=== PATIENT | female | born 2000 | race African-American/Black ===

== ENCOUNTER 2021-01-22 13:37 | Emergency (ER) | payer SELFPAY ==
[~2021-01-22] VITALS: Ht 160 cm; Wt 122.7 kg
[2021-01-22 13:37] VITALS: BP 147/70
--- NOTE | 2021-01-22 15:14 | PHYS DOC ---
General Adult EDM: Chief Complaint: KNEE INJURY HPI: HPI: 20-year-old female presents with left knee pain. Patient was walking in a store yesterday when she turned to answer question and rotate down her left knee. She heard a pop and she will fell into the doorway. She did not fall to the ground. Patient is able to bear weight but it is quite painful. She rates it 8 out of 10 with weightbearing. She has had intermittent trouble with this knee in the past. No specific injury diagnosed. She has no other injuries or complaints at this time. Review of Systems: Review of Systems: Constitutional: Denies fever or chills Eyes: Denies change in visual acuity HENT: Denies nasal congestion or sore throat Respiratory: Denies cough or shortness of breath Cardiovascular: Denies chest pain or edema GI: Denies abdominal pain, nausea, vomiting, bloody stools or diarrhea : Denies dysuria Musculoskeletal: Left knee pain Integument: Denies rash Neurologic: Denies headache, focal weakness or sensory changes Endocrine: Denies polyuria or polydipsia Lymphatic: Denies swollen glands Psychiatric: Denies depression or anxiety Physical Exam: PE: Constitutional: Well developed, well nourished, morbidly obese, no acute distress, non-toxic appearance. [] HENT: Normocephalic, atraumatic, bilateral external ears normal, oropharynx moist, no oral exudates, nose normal. [] Eyes: PERRLA, EOMI, conjunctiva normal, no discharge. [] Neck: Normal range of motion, no tenderness, supple, no stridor. [] Cardiovascular:Heart rate regular rhythm, no murmur [] Lungs & Thorax: Bilateral breath sounds clear to auscultation [] Abdomen: Bowel sounds normal, soft, no tenderness, no masses, no pulsatile masses. [] Skin: Warm, dry, no erythema, no rash. [] Back: No tenderness, no CVA tenderness. [] Extremities: Left knee ligaments with solid and feel. Medial pain with varus/valgus stress. Tenderness along the medial joint line. [] Neurologic: Alert and oriented X 3, normal motor function, normal sensory function, no focal deficits noted. [] Psychologic: Affect normal, judgement normal, mood normal. [] EKG: EKG: [] Radiology/Procedures: Radiology/Procedures: [] Heart Score: C/O Chest Pain: N/A Risk Factors: Risk Factors: DM, Current or recent (<one month) smoker, HTN, HLP, family history of CAD, obesity. Risk Scores: Score 0 - 3: 2.5% MACE over next 6 weeks - Discharge Home Score 4 - 6: 20.3% MACE over next 6 weeks - Admit for Clinical Observation Score 7 - 10: 72.7% MACE over next 6 weeks - Early Invasive Strategies Course & Med Decision Making: Course & Med Decision Making Pertinent Labs and Imaging studies reviewed. (See chart for details) The patient's x-ray is negative for fracture. I suspect she has a medial collateral ligament strain and possibly a medial meniscus tear. I told her to see how things go for the next several days and if it is not better in 1 week that she should seek orthopedic follow-up. I will provide crutches for comfort. She is stable for discharge at this time. [] Cameron Disclaimer: Cameron Disclaimer: This electronic medical record was generated, in whole or in part, using a voice recognition dictation system. Departure Departure: Impression: Primary Impression: Medial collateral ligament sprain of knee Qualified Codes: S83.412A - Sprain of medial collateral ligament of left knee, initial encounter Disposition: HOME / SELF CARE / HOMELESS Condition: STABLE Referrals: PCP,NO (PCP) Patient Instructions: Medial Collateral Knee Ligament Sprain with [facility] SHONDA HAGAN DO January 22, 2021 15:14
--- NOTE | 2021-01-22 15:17 | RAD ---
4 view study of the left knee Clinical indications: Left knee pain FINDINGS: No acute fracture or dislocation or lytic process is seen. No significant arthritic change is seen. No significant left knee joint effusion is seen. The patella is normally aligned. IMPRESSION: No significant osseous abnormality. Electronically signed by: Scott Rivera MD (01/22/2021 3:15 PM) [id number]
== END 2021-01-22 16:16 | disposition home or self-care (01) ==
LOC: ER 13:37
DX: S83.412A Sprain of medial collateral ligament of left knee, initial encounter (principal); W18.39XA Other fall on same level, initial encounter; Y93.01 Activity, walking, marching and hiking; Y92.89 Other specified places as the place of occurrence of the external cause; Y99.8 Other external cause status
CPT/HCPCS: 73564; 99283-25

== ENCOUNTER → 2021-12-14 | Emergency (ER) | payer MEDICAID ==
[~2021-12-14] VITALS: Ht 157.5 cm; Wt 114.4 kg
[~2021-12-14] MED LIST: IV NORMAL SALINE 1,000ML 1,000 ML IV ONE; KETOROLAC 30 MG/ML VIAL. IM ONE; KETOROLAC 30 MG/ML VIAL. IVP ONE; ONDA4TAB12 PO; ONDANSETRON PF 4 MG/2 ML VIAL. IVP ONE
[2021-12-14 17:02] VITALS: BP 146/87
--- NOTE | 2021-12-14 17:18 | PHYS DOC ---
Past History Past Medical History: Hypertension (MARIELENA HARRIS APRN) Past Surgical History: Tonsillectomy (MARIELENA HARRIS APRN) Alcohol Use: None (MARIELENA HARRIS APRN) General Adult EDM: Chief Complaint: CHEST PAIN HPI: HPI: Patient is a 21-year-old female who presents to the emergency department for left-sided chest pain that started 3 days ago. She describes it as a pressure. She rates it 3 out of 10. No treatment prior to arrival. No radiation of pain. Pain is worse with movement and palpation. She reports that she had 1 episode of vomiting this morning and has had some loose stools. She reports that she has had chest pain like this before but was never evaluated for it. Patient denies blood in her stools or vomit, dysuria, diarrhea, fevers, cough, shortness of breath, sick exposures. Patient does have a history of anxiety and hypertension. She reports that she is experiencing more anxiety than normal. (MARIELENA HARRIS APRN) Review of Systems: Review of Systems: Constitutional: See HPI Respiratory: See HPI Cardiovascular: See HPI GI: See HPI : See HPI Psychiatric: See HPI (MARIELENA HARRIS APRN) Allergies: Allergies: Allergies Coded Allergies Type Severity Reaction Last Updated Verified No Known Drug Allergies 12/14/21 No (MARIELENA HARRIS APRN) Physical Exam: PE: Constitutional: Well developed, well nourished, no acute distress, non-toxic appearance. [] HENT: Normocephalic, atraumatic, bilateral external ears normal, oropharynx moist, no oral exudates, nose normal. [] Eyes: PERRL, EOMI, conjunctiva normal, no discharge. [] Neck: Normal range of motion, no tenderness, supple, no stridor, left-sided chest wall tenderness with palpation. [] Cardiovascular:Heart rate regular rhythm, no murmur [] Lungs & Thorax: Bilateral breath sounds clear to auscultation [] Abdomen: Bowel sounds normal, soft, no tenderness, obese, no masses, no pulsatile masses. [] Skin: Warm, dry, no erythema, no rash. [] Back: No tenderness, normal range of motion Extremities: No tenderness, no cyanosis, no clubbing, ROM intact, no edema. [] Neurologic: Alert and oriented X 3, normal motor function, normal sensory function, no focal deficits noted. [] Psychologic: Affect normal, judgement normal, mood normal. [] (MARIELENA HARRIS APRN) Current Patient Data: Labs: Laboratory Tests Test 12/14/21 17:07 12/14/21 17:30 12/14/21 17:45 12/14/21 18:25 Bedside Urine HCG, Qualitative hcg negative Urine Collection Type Clean catch Urine Color Yellow Urine Clarity Clear Urine pH 6.5 Urine Specific Cory >=1.030 Urine Protein Neg Urine Glucose (UA) Neg mg/dL Urine Ketones (Stick) Neg mg/dL Urine Blood Neg Urine Nitrite Neg Urine Bilirubin Neg Urine Urobilinogen Dipstick 1.0 mg/dL Urine Leukocyte Esterase Neg Urine RBC 0 /HPF Urine WBC 0 /HPF Urine Squamous Epithelial Cells Mod /LPF Urine Bacteria 0 /HPF White Blood Count 12.6 x10^3/uL Red Blood Count 4.80 x10^6/uL Hemoglobin 12.8 g/dL Hematocrit 37.6 % Mean Corpuscular Volume 78 fL Mean Corpuscular Hemoglobin 27 pg Mean Corpuscular Hemoglobin Concent 34 g/dL Red Cell Distribution Width 14.9 % Platelet Count 331 x10^3/uL Neutrophils (%) (Auto) 81 % Lymphocytes (%) (Auto) 13 % Monocytes (%) (Auto) 6 % Eosinophils (%) (Auto) 1 % Basophils (%) (Auto) 1 % Neutrophils # (Auto) 10.1 x10^3uL Lymphocytes # (Auto) 1.6 x10^3/uL Monocytes # (Auto) 0.7 x10^3/uL Eosinophils # (Auto) 0.1 x10^3/uL Basophils # (Auto) 0.1 x10^3/uL Troponin I High Sensitivity 5 ng/L Sodium Level 139 mmol/L Potassium Level 3.9 mmol/L Chloride Level 102 mmol/L Carbon Dioxide Level 31 mmol/L Anion Gap 6 Blood Urea Nitrogen 10 mg/dL Creatinine 0.7 mg/dL Estimated GFR (Cockcroft-Gault) 129.1 BUN/Creatinine Ratio 14 Glucose Level 101 mg/dL Calcium Level 8.7 mg/dL Total Bilirubin 1.9 mg/dL Aspartate Amino Transf (AST/SGOT) 20 U/L Alanine Aminotransferase (ALT/SGPT) 31 U/L Alkaline Phosphatase 63 U/L Total Protein 6.7 g/dL Albumin 3.3 g/dL Albumin/Globulin Ratio 1.0 Current Medications Medications (Trade) Dose Ordered Sig/Laci Route PRN Reason Start Time Stop Time Status Last Admin Dose Admin Sodium Chloride 1,000 ml @ 1,000 mls/hr 1X ONCE IV 12/14/21 17:15 12/14/21 18:14 DC 12/14/21 17:15 Ondansetron HCl (Zofran) 4 mg 1X ONCE IVP 12/14/21 17:15 12/14/21 17:16 DC 12/14/21 17:15 Ketorolac Tromethamine (Toradol 30mg Vial) 30 mg 1X ONCE IVP 12/14/21 19:15 12/14/21 19:24 DC (MARIELENA HARRIS APRN) EKG: EKG: EKG performed by ER staff at 1729 shows sinus rhythm with a rate of 61, QTc 324, no STEMI read by Dr. Aguilar at 1729 [] (MARIELENA HARRIS APRN) Radiology/Procedures: Radiology/Procedures: []PROCEDURE: PORTABLE CHEST 1V Exam Date: 12/14/2021 5:18 PM XR CHEST 1V Indication: Reason: chest pain / Spl. Instructions: / History: . FINDINGS/ IMPRESSION: The cardiac silhouette and pulmonary vasculature are within normal limits. There is no focal consolidation, pleural effusion or pneumothorax. The visualized osseous structures are intact. Electronically signed by: Saul Glover MD (12/14/2021 5:31 PM) [facility] DICTATED AND SIGNED BY: SAUL GLOVER MD DATE: 12/14/21 422 CC: MARIELENA HARRIS APRN; PCP,NO ~ (MARIELENA HARRIS APRN) Heart Score: C/O Chest Pain: Yes HEART Score for Chest Pain: HEART Score for Chest Pain Response (Comments) Value History Slighlty/Non-Suspicious 0 ECG Nonspecific Repolarizatio 1 Age < 45 0 Risk Factors 1 or 2 Risk Factors 1 Troponin < Normal Limit 0 Total 2 Risk Factors: Risk Factors: DM, Current or recent (<one month) smoker, HTN, HLP, family history of CAD, obesity. Risk Scores: Score 0 - 3: 2.5% MACE over next 6 weeks - Discharge Home Score 4 - 6: 20.3% MACE over next 6 weeks - Admit for Clinical Observation Score 7 - 10: 72.7% MACE over next 6 weeks - Early Invasive Strategies (MARIELENA HARRIS APRN) Course & Med Decision Making: Course & Med Decision Making Pertinent Labs and Imaging studies reviewed. (See chart for details) [] Patient presents to the emergency department for left-sided chest pain that started 3 days ago that is worse with movement and palpation. Patient is also reporting one episode of vomiting today. Work-up in the emergency department consisted of blood work including troponin, EKG and chest x-ray. She was treated with IV fluids and nausea and pain medication. Patient's heart score is 2. Patient does have mild leukocytosis with a white blood cell count of 12.6, this is possibly due to emesis or viral illness. Patient was noted to have a mildly elevated bilirubin which could be related to a viral illness. She will be tested for covid and influenza. Remainder patient's lab work was unremarkable, negative troponin, chest x-ray did not show any pneumonia, urinalysis not show any urinary tract infection. Patient has no vomited while in the ER. Her VSS. She will be discharged home with nausea medication, she is advised to eat a bland diet, educated on brat diet, advised to avoid fatty, greasy or spicey foods. I discussed with patient all findings and diagnostic testing as well as the need to follow-up with PCP for further evaluation and treatment or return to the ER if any new or worsening symptoms. Strict return precautions were also discussed at length. Patient voiced understanding and agreement with the plan. Patient is hemodynamically stable at the time of disposition. (MARIELENA HARRIS APRN) Dragon Disclaimer: Dragon Disclaimer: This electronic medical record was generated, in whole or in part, using a voice recognition dictation system. (MARIELENA HARRIS APRN) Attending Co-Sign The patient was seen and interviewed as well as examined at the bedside. The chart was reviewed. The case was discussed. Agree with the plan of care. (SHONDA HAGAN DO) Departure Departure: Impression: Primary Impression: Chest wall pain Additional Impression: Nausea & vomiting Qualified Codes: R11.2 - Nausea with vomiting, unspecified Disposition: HOME / SELF CARE / HOMELESS Condition: GOOD Referrals: PCP,NO (PCP) Patient Instructions: Chest Wall Pain, Nausea and Vomiting Additional Instructions: You were seen in the emergency department today for chest pain with nausea and vomiting. At this time, does not appear that you are experiencing acute coronary syndrome. It appears he may be experiencing a viral illness. For your pain you can take Tylenol and ibuprofen. You are being discharged home with nausea medication. Please take this as needed. Increase your fluids. I would advise you to stick to a bland diet over the next day or 2. We recommend a brat diet which is bananas, rice, applesauce and toast. Avoid eating any spicy, greasy or fatty foods. Discontinue marijuana use as this is a common cause of nausea and vomiting. Follow-up with your primary care provider tomorrow regarding your ER visit. Return to the emergency department if you develop chest pain, shortness of breath, high fevers refractory to treatment, intractable nausea or vomiting. Scripts Ondansetron (ONDANSETRON ODT) 4 Mg Tab.rapdis 1 TAB PO PRN Q6-8HRS for nausea for 7 Days, #28 TAB 0 Refills Prov: MARIELENA HARRIS APRN 12/14/21 MARIELENA HARRIS APRN Dec 14, 2021 17:18 SHONDA HAGAN DO Dec 16, 2021 05:51
--- NOTE | 2021-12-14 17:34 | RAD ---
Exam Date: 12/14/2021 5:18 PM XR CHEST 1V Indication: Reason: chest pain / Spl. Instructions: / History: . FINDINGS/ IMPRESSION: The cardiac silhouette and pulmonary vasculature are within normal limits. There is no focal consolidation, pleural effusion or pneumothorax. The visualized osseous structures are intact. Electronically signed by: John Glover MD (12/14/2021 5:31 PM) [facility]
[2021-12-14 18:05] LABS: BASO # 0.1 x10^3/uL (0.0-0.2); BASO % 1 % (0-3); EOS # 0.1 x10^3/uL (0.0-0.7); EOS % 1 % (0-3); HEMATOCRIT 37.6 % (36.0-47.0); HEMOGLOBIN 12.8 g/dL (12.0-15.5); LYMPH # 1.6 x10^3/uL (1.0-4.8); LYMPH % 13 % (24-48); MEAN CORPUSCULAR HEMOGLOBIN 27 pg (25-35); MEAN CORPUSCULAR HGB CONC 34 g/dL (31-37); MEAN CORPUSCULAR VOLUME 78 fL (79-100); MONO # 0.7 x10^3/uL (0.0-1.1); MONO % 6 % (0-9); NEUT # 10.1 x10^3uL (1.8-7.7); NEUT % 81 % (31-73); PLATELET COUNT 331 x10^3/uL (140-400); RED CELL DISTRIBUTION WIDTH 14.9 % (11.5-14.5); WHITE BLOOD COUNT 12.6 x10^3/uL (4.0-11.0)
[2021-12-14 18:37] LABS: BACTERIA,URINE 0 /HPF (0-FEW); CLARITY,URINE CLEAR; COLOR,URINE YELLOW; GLUCOSE,URINE NEG (NEG); NITRITE,URINE NEG (NEG); RBC,URINE 0 /HPF (0-2); SQUAMOUS EPITHELIAL CELL,UR MOD /LPF; WBC,URINE 0 /HPF (0-4)
[2021-12-14 18:57] LABS: CALCIUM 8.7 mg/dL (8.5-10.1); CREATININE 0.7 mg/dL (0.6-1.0); GFR 129.1; POTASSIUM 3.9 mmol/L (3.5-5.1)
[2021-12-14 19:02] LABS: ALBUMIN 3.3 g/dL (3.4-5.0); TOTAL BILIRUBIN 1.9 mg/dL (0.2-1.0); TOTAL PROTEIN 6.7 g/dL (6.4-8.2)
[2021-12-14 20:53] LABS: INFLUENZA A PATIENT NEGATIVE (NEGATIVE); INFLUENZA B PATIENT NEGATIVE (NEGATIVE)
--- NOTE | 2021-12-14 22:13 | EKG ---
[address] [address] Test Date: 2021-12-14 Test Time: 17:29:06 Pat Name: KEKE ALVARADO Department: Room: Gender: F Medical Laboratory Technical Officer: YONATAN : 2000 Requested By: MARIELENA HARRIS Order Number: [id number] Reading MD: Measurements Intervals [place] Rate: 61 P: 39 TX: 170 QRS: 57 QRSD: 94 T: 36 QT: 380 QTc: 384 Interpretive Statements SINUS RHYTHM NO SPECIFIC ECG ABNORMALITIES RI6.02 No previous ECG available for comparison
== END | disposition home or self-care (01) ==
LOC: ER 16:53
DX: R07.89 Other chest pain (principal); R11.2 Nausea with vomiting, unspecified; R19.7 Diarrhea, unspecified; I10 Essential (primary) hypertension; Z20.822 Contact with and (suspected) exposure to COVID-19
CPT/HCPCS: 36415; 71045; 80053; 81001; 81025; 83690; 84484; 85025; 87428; 93005; 96361; 96372; 96374; 99285; J1885; J2405; J7030

== ENCOUNTER 2022-01-14 20:46 | Emergency (ER) | payer MEDICAID ==
[~2022-01-14] VITALS: Ht 157.5 cm; Wt 114.4 kg
[~2022-01-14 20:46] MED LIST changes: -IV NORMAL SALINE 1,000ML 1,000 ML IV ONE; -KETOROLAC 30 MG/ML VIAL. IM ONE; -KETOROLAC 30 MG/ML VIAL. IVP ONE; -ONDANSETRON PF 4 MG/2 ML VIAL. IVP ONE
--- NOTE | 2022-01-14 21:01 | PHYS DOC ---
Past History Past Medical History: Hypertension Past Surgical History: Tonsillectomy Alcohol Use: None General Adult EDM: Chief Complaint: RECTAL BLEED HPI: HPI: Patient is a 21 year old female who is here with painless bright rectal bleeding. She denies abdominal pain, pelvic pain, diarrhea, constipation, urinary symptoms. She denies fever, chills. She denies dizziness or weakness. She denies any pelvic or anal or rectal trauma. She does admit that she occasionally strains for bowel movements. No other complaints. Review of Systems: Review of Systems: Constitutional: Denies fever or chills HENT: Denies nasal congestion or sore throat Respiratory: Denies cough or shortness of breath Cardiovascular: Denies chest pain or edema GI: Denies abdominal pain, nausea, vomiting, diarrhea or constipation. Painless rectal bleeding reported. : Denies urinary symptoms or gross hematuria. Musculoskeletal: Denies back pain or joint pain Integument: Denies rash Neurologic: Denies headache, focal weakness or sensory changes Psychiatric: Denies depression or anxiety Allergies: Allergies: Allergies Coded Allergies Type Severity Reaction Last Updated Verified No Known Drug Allergies 12/14/21 No Physical Exam: PE: Constitutional: Well developed, well nourished, no acute distress, non-toxic appearance. [] HENT: Normocephalic, atraumatic Eyes: Conjunctiva are normal Neck: Normal range of motion, no tenderness, supple, no stridor. [] Cardiovascular:Heart rate regular rhythm Lungs & Thorax: Bilateral breath sounds clear to auscultation [] Abdomen: Bowel sounds normal, soft, no tenderness, no masses, no pulsatile mas ses. No CVA tenderness. Rectal: There is an anal fissure at 6:00. No active or brisk bleeding. No tenderness. No other external lesions are noted. No perianal edema, erythema, no obvious external hemorrhoid. Skin: Warm, dry, no erythema, no rash. Anal fissure. Back: No tenderness, no CVA tenderness. [] Extremities: No tenderness, no cyanosis, no clubbing, ROM intact, no edema. [] Neurologic: Alert and oriented X 3, normal motor function, normal sensory function, no focal deficits noted. [] Psychologic: Affect normal, judgement normal, mood normal. She is pleasant and cooperative EKG: EKG: [] Radiology/Procedures: Radiology/Procedures: [] Heart Score: C/O Chest Pain: No Risk Factors: Risk Factors: DM, Current or recent (<one month) smoker, HTN, HLP, family history of CAD, obesity. Risk Scores: Score 0 - 3: 2.5% MACE over next 6 weeks - Discharge Home Score 4 - 6: 20.3% MACE over next 6 weeks - Admit for Clinical Observation Score 7 - 10: 72.7% MACE over next 6 weeks - Early Invasive Strategies Course & Med Decision Making: Course & Med Decision Making The patient has findings of an isolated anal fissure. I discussed home care instructions for this. I recommend avoiding straining, avoid becoming cons tipated. She should take fiber supplements, drink plenty of water.The patient is well-appearing. She is well-appearing. She denies any other associated GI symptoms. She is otherwise well-appearing. There is no indication for emergent labs, imaging. She is given resources to establish care with a primary care physician. I told her to make sure she follows up with a PCP to have her blood pressure rechecked to ensure she does not have chronic hypertension that would require treatment. Return precautions are given. She verbalizes understanding. Cameron Disclaimer: Cameron Disclaimer: This electronic medical record was generated, in whole or in part, using a voice recognition dictation system. Departure Departure: Impression: Primary Impression: Anal fissure Disposition: HOME / SELF CARE / HOMELESS Condition: STABLE Referrals: PCP,NO (PCP) Patient Instructions: Anal Fissure, Adult Additional Instructions: Return to the ER for severe abdominal pain, severe rectal pain, heavy or uncontrolled bleeding, temperature 100.4 or higher, uncontrolled vomiting or any other concerns. Make sure to avoid straining, this will worsen bleeding with anal fissures. Avoid constipation by taking [id number] stool softeners, such as senna, increase the fiber content in your diet, make sure you stay hydrated, drink plenty of water. Follow-up with a primary care physician for routine care. OSVALDO POOLE DO January 14, 2022 21:01
[2022-01-14 21:17] VITALS: BP 156/99
== END 2022-01-14 21:17 | disposition home or self-care (01) ==
LOC: ER 20:46
DX: K60.2 Anal fissure, unspecified (principal); I10 Essential (primary) hypertension
CPT/HCPCS: 99282